=== PATIENT | female | born 1940 | race Caucasian/White ===

== ENCOUNTER 2024-03-24 11:59 | Emergency (ER) | payer MEDICARE, OTHER | END 2024-03-24 14:05 | disposition home or self-care (01) | LOC: JD.ED 11:59 | DX: S76.011A Strain of muscle, fascia and tendon of right hip, initial encounter (principal); I50.9 Heart failure, unspecified; Z90.49 Acquired absence of other specified parts of digestive tract; Z79.899 Other long term (current) drug therapy; Z91.013 Allergy to seafood; X58.XXXA Exposure to other specified factors, initial encounter | CPT/HCPCS: 73502-26-RT; 73502-RT; 99283 ==